=== PATIENT | female | born 1970 ===

== ENCOUNTER → 2021-08-28 | Outpatient (CLI) | payer SELFPAY | LOC: M LABSMTC 09:41 | PROVIDERS: ATTEND Pediatrics | DX: Z20.822 Contact with and (suspected) exposure to COVID-19 (principal) ==

== ENCOUNTER → 2022-07-06 | Outpatient (REF) | LOC: M EMP 07:53 | PROVIDERS: ATTEND Family Medicine | DX: Z20.822 Contact with and (suspected) exposure to COVID-19 (principal) ==

== ENCOUNTER → 2022-11-28 | Outpatient (REF) ==
[2022-11-28 14:07] LABS: RSV AMPLIFICATION NEGATIVE (NEGATIVE)
== END ==
LOC: M EMP 12:51
PROVIDERS: ATTEND Family Medicine
DX: Z11.52 Encounter for screening for COVID-19 (principal)